=== PATIENT | male | born 1955 | race Caucasian/White ===

== ENCOUNTER 2019-12-16 20:35 | Emergency (ER) | payer OTHER ==
[~2019-12-16] VITALS: Ht 180.3 cm; Wt 87.0 kg
--- NOTE | 2019-12-16 20:59 | NUR ---
first pt contact: pt tranferred to chair from wheelchair using cane with stand by assist. Pt states he was pulling a nail out of 2x4 with a crowbar, nail flung up when under his glasses and hit his left eye. pt states he can see light out of the eye but cannot make out shapes or distinctions. Can see colors in some areas. Pt states it looks like "a bunch of lines adn theres idifferent colors here and there but i cant make out if its a person or anything." Reports pain in and around eye on left side, states it is dull pain from below brow to below eye, 3/10. pt is unable to open eye for eval at this time. pt placed on spo2, bp monitoring. wctm waiting for ERP eval.
[2019-12-16] MEDS ORDERED: METO-99 PO ×2 (21:05)
[2019-12-16] MEDS ORDERED: FLUORESCEIN OPHTHALMIC 1 MG STRIP ONE (21:10)
[2019-12-16] MEDS ORDERED: PROPARACAINE OPHTH 0.5%, 15ML ONE (21:10)
--- NOTE | 2019-12-16 21:11 | NUR ---
LATE ENTRY: pt unable to complete visual acuity test from Left eye
[2019-12-16] MEDS ORDERED: ASPI-515 PO (21:12)
[2019-12-16] MEDS ORDERED: TAMS-11 PO (21:12)
[2019-12-16] MEDS ORDERED: FINA5TAB4 PO (21:12)
[2019-12-16] MEDS ORDERED: PHEN50TA4 PO ×2 (21:12)
[2019-12-16] MEDS ORDERED: LEVE500T8 PO (21:12)
[2019-12-16] MEDS ORDERED: ATOR10TA9 PO (21:12)
[2019-12-16] MEDS ORDERED: HYDR25TA6 PO (21:12)
[2019-12-16] MEDS ORDERED: BENA20TA54 PO (21:12)
[2019-12-16] MEDS ORDERED: CHOL10003 PO (21:12)
[2019-12-16] MEDS ORDERED: CLOP75TA PO (21:12)
[2019-12-16] MEDS ORDERED: AMLO10TA8 PO (21:12)
[2019-12-16] MEDS ORDERED: PROPARACAINE OPHTH 0.5%, 15ML LEFTEYE ONE (21:30)
[2019-12-16] MEDS ORDERED: CEFAZOLIN PMX 1GM/50ML 50 ML IV ONE (21:30)
[2019-12-16] MEDS ORDERED: DIPH,PERTUSS(ACELL),TET VAC/PF 0.5 ML IM-VACC ONE ×2 (21:30→21:44)
[2019-12-16] MEDS ORDERED: FLUORESCEIN OPHTHALMIC 1 MG STRIP LEFTEYE ONE (21:30)
[2019-12-16] MEDS ORDERED: CEFAZOLIN PMX 1GM/50ML 50 ML ONE (21:44)
[2019-12-16] MEDS ORDERED: CIPROFLOXACIN OPHTH SOLN 0.3%, 5ML LEFTEYE SCH (22:00)
--- NOTE | 2019-12-16 22:18 | NUR ---
pt sitting in room, lights dimmed for comfort, no change in condition, medicated per mar. pt to transfer to [facility]. NICOLAS.
[2019-12-16] MEDS ORDERED: MORPHINE SULFATE 4 MG/ML, 1ML ONE (22:42)
[2019-12-16] MEDS ORDERED: ONDANSETRON 2MG/ML, 2ML ONE (22:42)
--- NOTE | 2019-12-16 22:48 | NUR ---
PT MEDICATED PER MAR FOR PAIN. RESTING IN CHAIR. SON AT BS. NAD, VSS. WCTM. WAITING FOR TRANSFER TO [facility]
[2019-12-16] MEDS ORDERED: ONDANSETRON 2MG/ML, 2ML IVPush ONE (23:00)
[2019-12-16] MEDS ORDERED: MORPHINE SULFATE 4 MG/ML, 1ML IVPush ONE (23:00)
--- NOTE | 2019-12-16 23:37 | NUR ---
pt resting in chair, eyes closed, VSS, appears comfortable. WCTM. waiting for transfer.
[2019-12-17] MEDS ORDERED: CEFTRIAXONE PMX 1GM/50ML 50 ML IV ONE
[2019-12-17] MEDS ORDERED: VANCOMYCIN PER PHARMACY MC PRN
[2019-12-17] MEDS ORDERED: CEFTRIAXONE PMX 1GM/50ML 50 ML ONE (00:08)
[2019-12-17] MEDS ORDERED: MORPHINE SULFATE 4 MG/ML, 1ML ONE (00:17)
--- NOTE | 2019-12-17 00:20 | NUR ---
[facility] DENIED TRANSPORT FOR REASON OF NO OR FOR MULTIPLE DAYS.
--- NOTE | 2019-12-17 00:21 | NUR ---
CHALO KENDRICK FOR UPDATES
--- NOTE | 2019-12-17 00:21 | NUR ---
[facility] DENIED TRANSFER DUE TO NO BEDS, AND PATIENT IS TRAUMA CRITERIA.
--- NOTE | 2019-12-17 00:22 | NUR ---
[facility] EXCEPTED PATIENT. PATIENT TO GO FIXED WING.
[2019-12-17] MEDS ORDERED: VANCOMYCIN 1,700 MG in SODIUM CHLORIDE 0.9% 250 ML IV ONE (00:30)
[2019-12-17] MEDS ORDERED: MORPHINE SULFATE 4 MG/ML, 1ML IVPush ONE (00:30)
--- NOTE | 2019-12-17 00:48 | NUR ---
[facility] ETA [id number].
--- NOTE | 2019-12-17 00:53 | NUR ---
MARIA DEL ROSARIO, DAUGHTER
[2019-12-17 01:12] VITALS: BP 107/73
--- NOTE | 2019-12-17 01:12 | NUR ---
PT RESTING IN EYE EXAM CHAIR, LEANED BACK, RESP HEARD AND WNL, EVEN AND BILATERAL CHEST RISE AND FALL, VSS, EYES CLOSED. WCTM. WAITING FOR TRASNFER STAFF.
--- NOTE | 2019-12-17 01:49 | NUR ---
stoneworker: Luz Marina here to take patient to [facility]. report to given.
--- NOTE | 2019-12-17 06:01 | NUR ---
MARIA DEL ROSARIO DAUGHTER CALLED TO INFORM RN THAT PT WALLET IS MISSING UPON ARRIVAL TO [facility]. THIS RN WENT AND CHECKED ROOM. NO BELONGINGS NOTED ON FLOOR OR IN CHAIR, SECURITY DENIES HAVING WALLET. NO BELONGINGS WERE NOTED WHILE RN CLEANED ROOM AFTER PT DC. PT SON TOOK PT JEWELRY PRIOR TO LEAVING.
== END 2019-12-17 02:28 | disposition short-term general hospital (02) ==
LOC: ED 21:41
DX: S05.32XA Ocular laceration without prolapse or loss of intraocular tissue, left eye, initial encounter (principal); H53.132 Sudden visual loss, left eye; W22.8XXA Striking against or struck by other objects, initial encounter; Y93.89 Activity, other specified; Y92.098 Other place in other non-institutional residence as the place of occurrence of the external cause; Y99.8 Other external cause status
CPT/HCPCS: 90471; 90715; 96365; 96366; 96367; 96368; 96375; 96376; 99285; J0690; J0696; J2270; J2405; J3370; J7050